=== PATIENT | male | born 1970 | race Caucasian/White ===

== ENCOUNTER 2017-08-05 00:53 | Inpatient (IN) | payer MEDICAID ==
[~2017-08-05] VITALS: Ht 182.9 cm; Wt 96.3 kg
[2017-08-05 01:32] LABS: MEAN CORPUSCULAR HEMOGLOBIN 31.2 pg (27.5-34.5); MEAN CORPUSCULAR HGB CONC 33.7 g/dL (33.2-36.2); MEAN CORPUSCULAR VOLUME 92.5 fL (81-97); RED BLOOD COUNT 4.05 x10^6/uL (4.38-5.82); RED CELL DISTRIBUTION WIDTH 16.7 % (9.4-14.8)
[2017-08-05 01:35] LABS: ANION GAP 9 mmol/L (5-15); CALCIUM 8.2 mg/dL (8.5-10.1); CHLORIDE 112 mmol/L (98-107); CREATININE 0.74 mg/dL (0.7-1.3)
[2017-08-05 01:36] LABS: ALANINE AMINOTRANSFERASE 30 U/L (12-78); ALBUMIN 2.1 g/dL (3.4-5.0)
[2017-08-05 01:38] LABS: ALKALINE PHOSPHATASE 150 U/L (45-117); BILIRUBIN,TOTAL 1.6 mg/dL (0.2-1.0); TOTAL PROTEIN 6.3 g/dL (6.4-8.2)
[2017-08-05] MEDS ORDERED: SPIR25TA3 PO (01:41)
[2017-08-05] MEDS ORDERED: GABA300C10 PO (01:41)
[2017-08-05] MEDS ORDERED: OXYC5CAP2 PO (01:41)
[2017-08-05] MEDS ORDERED: CEPH-375 PO (01:41)
[2017-08-05] MEDS ORDERED: PANT20TA3 PO (01:41)
[2017-08-05] MEDS ORDERED: LEVE100S6 PO (01:41)
[2017-08-05] MEDS ORDERED: RIFA200T5 PO (01:41)
[2017-08-05 02:05] LABS: BASOPHILS # (AUTO) 0.02 x10^3/uL (0-0.1); BASOPHILS % (AUTO) 0 % (0-1); EOSINOPHILS % (AUTO) 0 % (1-7); LYMPHOCYTES # (AUTO) 0.65 x10^3/uL (1-3.4); LYMPHOCYTES % (AUTO) 14 % (22-44); MD SCAN; MEAN PLATELET VOLUME 8.2 fL (7.4-10.4); MONOCYTES # (AUTO) 0.61 x10^3/uL (0.2-0.8); MONOCYTES % (AUTO) 13 % (2-9); NEUTROPHILS # (AUTO) 3.54 x10^3/uL (1.8-6.8); NEUTROPHILS % (AUTO) 73 % (42-75); PLATELET COUNT 66 x10^3/uL (130-400)
[2017-08-05 03:25] LABS: ACETAMINOPHEN < 2 mcg/mL (10-30)
[2017-08-05 03:26] LABS: SALICYLATE LEVEL < 1.7 mg/dL (2.8-20.0)
[2017-08-05] MEDS ORDERED: SODIUM CHLORIDE 0.9% 1,000 ML IV ONE (04:05)
[2017-08-05] MEDS ORDERED: ONDANSETRON 2MG/ML, 2ML IVPush PRN (04:30)
[2017-08-05] MEDS ORDERED: LACTULOSE 3.3 GM/5 ML ORAL.SOL RC ONE ×2 (08:00→12:00)
[2017-08-05 08:54] LABS: AMPHETAMINE SCREEN, URINE Positive (Negative); BARBITURATE SCREEN, URINE Negative (Negative); BENZODIAZEPINE SCREEN, URINE Negative (Negative); CANNABINOID SCREEN, URINE Negative (Negative); COCAINE SCREEN, URINE Negative (Negative); METHADONE SCREEN, URINE Negative (Negative); OPIATE SCREEN, URINE Negative (Negative)
[2017-08-05 10:00] LABS: MICROSCOPIC INDICATED
[2017-08-05 10:38] LABS: CULTURE INDICATED? NO
[2017-08-05] MEDS ORDERED: ONDANSETRON ODT 4 MG PO PRN (12:00)
[2017-08-05] MEDS ORDERED: hydrALAzine 20 MG/ML, 1ML IVPush PRN (12:00)
[2017-08-05] MEDS ORDERED: LABETALOL 5MG/ML, 20ML IVPush PRN (12:00)
[2017-08-05] MEDS: CEFTRIAXONE PMX 2GM/50ML 50 ML IV SCH (12:26)
[2017-08-05 12:31] LABS: HEMOGLOBIN A1C 4.4 % (4.2-6.3)
[2017-08-05 12:32] LABS: INTERNATIONAL NORMALIZED RATIO 1.36 (0.93-1.1); PROTHROMBIN TIME 14.1 Seconds (9.6-11.5)
[2017-08-05 12:40] LABS: FREE T4 (FREE THYROXINE) 1.25 ng/dL (0.76-1.46); THYROID STIMULATING HORMONE 0.747 mIU/L (0.358-3.740)
[2017-08-05] MEDS: LEVETIRACETAM 500 MG in SODIUM CHLORIDE 0.9% 100 ML IV SCH ×2 (13:48→23:33)
[2017-08-05 14:00] VITALS: BP 130/79
[2017-08-05] MEDS: POTASSIUM CHLORIDE 20 MEQ, MAGNESIUM SULFATE 2 GM, THIAMINE 100 MG, MVI ADULT 10 ML, FO... IV SCH ×2 (15:01→22:16)
[2017-08-05 19:13] VITALS: BP 122/80
[2017-08-06 01:39] VITALS: BP 115/74
[2017-08-06 05:03] LABS: MEAN CORPUSCULAR HEMOGLOBIN 31.3 pg (27.5-34.5); MEAN CORPUSCULAR HGB CONC 33.9 g/dL (33.2-36.2); MEAN CORPUSCULAR VOLUME 92.3 fL (81-97); RED BLOOD COUNT 3.96 x10^6/uL (4.38-5.82); RED CELL DISTRIBUTION WIDTH 16.5 % (9.4-14.8)
[2017-08-06 05:27] LABS: ANION GAP 7 mmol/L (5-15); CALCIUM 7.6 mg/dL (8.5-10.1); CHLORIDE 113 mmol/L (98-107)
[2017-08-06 05:29] LABS: CREATININE 0.71 mg/dL (0.7-1.3)
[2017-08-06 06:14] LABS: BASOPHILS # (AUTO) 0.05 x10^3/uL (0-0.1); BASOPHILS % (AUTO) 1 % (0-1); EOSINOPHILS % (AUTO) 0 % (1-7); LYMPHOCYTES % (AUTO) 12 % (22-44); MD SCAN; MEAN PLATELET VOLUME 8.1 fL (7.4-10.4); MONOCYTES # (AUTO) 0.43 x10^3/uL (0.2-0.8); MONOCYTES % (AUTO) 11 % (2-9); NEUTROPHILS # (AUTO) 3.04 x10^3/uL (1.8-6.8); NEUTROPHILS % (AUTO) 76 % (42-75); PLATELET COUNT 55 x10^3/uL (130-400)
[2017-08-06 06:40] VITALS: BP 109/63
[2017-08-06] MEDS: ONDANSETRON 2MG/ML, 2ML IVPush PRN (08:37)
[2017-08-06] MEDS: PANTOPRAZOLE 40 MG IV IVPush SCH (08:37)
[2017-08-06] MEDS: POTASSIUM CHLORIDE 20 MEQ, MAGNESIUM SULFATE 2 GM, THIAMINE 100 MG, MVI ADULT 10 ML, FO... IV SCH ×2 (10:30→16:55)
[2017-08-06] MEDS ORDERED: LORazepam 1MG TABLET PO PRN ×3 (12:00)
[2017-08-06] MEDS ORDERED: LORazepam 2 MG/ML, 1ML IV PRN ×5 (12:00)
[2017-08-06] MEDS: LEVETIRACETAM 500 MG in SODIUM CHLORIDE 0.9% 100 ML IV SCH ×2 (12:25→23:40)
[2017-08-06] MEDS: PHYTONADIONE 10 MG/ML, 1ML IM SCH (12:26)
[2017-08-06 12:27] VITALS: BP 96/57
[2017-08-06 12:50] LABS: ALBUMIN 1.9 g/dL (3.4-5.0); BILIRUBIN, DIRECT 1.1 mg/dL (0.1-0.2); BILIRUBIN,TOTAL 3.1 mg/dL (0.2-1.0)
[2017-08-06] MEDS ORDERED: LIDOCAINE 2%, 20ML ONE (13:50)
[2017-08-06] MEDS ORDERED: LACTULOSE 20 GM/30 ML UDC PO SCH (14:30)
[2017-08-06] MEDS: SPIRONOLACTONE 25 MG TABLET PO SCH (15:03)
[2017-08-06] MEDS: CEFTRIAXONE PMX 2GM/50ML 50 ML IV SCH (15:04)
[2017-08-06 20:31] VITALS: BP 108/67
[2017-08-06] MEDS: IBUPROFEN 200 MG TABLET PO PRN (23:41)
[2017-08-06] MEDS: LACTULOSE 20 GM/30 ML UDC PO SCH (23:41)
[2017-08-06] MEDS: LORazepam 0.5MG TABLET PO PRN (23:55)
[2017-08-07 01:27] VITALS: BP 129/75
[2017-08-07] MEDS: POTASSIUM CHLORIDE 20 MEQ, MAGNESIUM SULFATE 2 GM, THIAMINE 100 MG, MVI ADULT 10 ML, FO... IV SCH (03:01)
[2017-08-07] MEDS: LORazepam 1MG TABLET PO PRN ×2 (04:38→08:39)
[2017-08-07 05:54] LABS: ALBUMIN 1.9 g/dL (3.4-5.0); ANION GAP 7 mmol/L (5-15); CALCIUM 7.5 mg/dL (8.5-10.1); CHLORIDE 112 mmol/L (98-107)
[2017-08-07 05:58] LABS: ALANINE AMINOTRANSFERASE 24 U/L (12-78); ALKALINE PHOSPHATASE 122 U/L (45-117); BILIRUBIN,TOTAL 2.4 mg/dL (0.2-1.0); CREATININE 0.78 mg/dL (0.7-1.3); TOTAL PROTEIN 5.9 g/dL (6.4-8.2)
[2017-08-07 06:16] LABS: MEAN CORPUSCULAR HEMOGLOBIN 31.3 pg (27.5-34.5); MEAN CORPUSCULAR HGB CONC 33.9 g/dL (33.2-36.2); MEAN CORPUSCULAR VOLUME 92.3 fL (81-97); MEAN PLATELET VOLUME 8.1 fL (7.4-10.4); PLATELET COUNT 53 x10^3/uL (130-400); RED BLOOD COUNT 4.03 x10^6/uL (4.38-5.82); RED CELL DISTRIBUTION WIDTH 16.2 % (9.4-14.8)
[2017-08-07 06:42] LABS: BASOPHILS # (AUTO) 0.02 x10^3/uL (0-0.1); BASOPHILS % (AUTO) 1 % (0-1); EOSINOPHILS % (AUTO) 0 % (1-7); LYMPHOCYTES # (AUTO) 0.42 x10^3/uL (1-3.4); LYMPHOCYTES % (AUTO) 12 % (22-44); MD SCAN; MONOCYTES # (AUTO) 0.36 x10^3/uL (0.2-0.8); MONOCYTES % (AUTO) 10 % (2-9); NEUTROPHILS # (AUTO) 2.73 x10^3/uL (1.8-6.8); NEUTROPHILS % (AUTO) 77 % (42-75)
[2017-08-07 07:17] VITALS: BP 103/63
[2017-08-07] MEDS: PANTOPRAZOLE 40 MG IV IVPush SCH (08:38)
[2017-08-07] MEDS: SPIRONOLACTONE 25 MG TABLET PO SCH (08:38)
[2017-08-07] MEDS: PHYTONADIONE 10 MG/ML, 1ML IM SCH (08:38)
[2017-08-07] MEDS: LACTULOSE 20 GM/30 ML UDC PO SCH ×2 (08:39→22:52)
[2017-08-07] MEDS ORDERED: POTASSIUM CHLORIDE 20 MEQ, MAGNESIUM SULFATE 2 GM, THIAMINE 100 MG, MVI ADULT 10 ML, FO... IV SCH (10:30)
[2017-08-07] MEDS: LEVETIRACETAM 500 MG in SODIUM CHLORIDE 0.9% 100 ML IV SCH (11:02)
[2017-08-07] MEDS: CEFTRIAXONE PMX 2GM/50ML 50 ML IV SCH (12:15)
[2017-08-07 12:57] VITALS: BP 104/66
[2017-08-07] MEDS: PANTOPRAZOLE 20MG TABLET PO SCH (14:17)
[2017-08-07] MEDS: THIAMINE 100MG TABLET PO SCH (14:17)
[2017-08-07] MEDS: FOLIC ACID 1 MG TABLET PO SCH (14:17)
[2017-08-07 20:41] VITALS: BP 102/58
[2017-08-07] MEDS ORDERED: LACTULOSE 20 GM/30 ML UDC PO SCH (21:00)
[2017-08-07] MEDS: RIFAXIMIN 550 MG TABLET PO SCH (22:48)
[2017-08-08] MEDS: LEVETIRACETAM 500 MG in SODIUM CHLORIDE 0.9% 100 ML IV SCH ×2 (00:05→11:35)
[2017-08-08] MEDS: LORazepam 0.5MG TABLET PO PRN (00:05)
[2017-08-08] MEDS: PANTOPRAZOLE 20MG TABLET PO SCH ×2 (02:00→15:12)
[2017-08-08 05:17] VITALS: BP 97/61
[2017-08-08 05:58] LABS: MEAN CORPUSCULAR HEMOGLOBIN 31.9 pg (27.5-34.5); MEAN CORPUSCULAR HGB CONC 34.4 g/dL (33.2-36.2); MEAN CORPUSCULAR VOLUME 92.7 fL (81-97); MEAN PLATELET VOLUME 8.1 fL (7.4-10.4); PLATELET COUNT 61 x10^3/uL (130-400); RED BLOOD COUNT 4.15 x10^6/uL (4.38-5.82); RED CELL DISTRIBUTION WIDTH 16.8 % (9.4-14.8)
[2017-08-08 06:05] LABS: CHLORIDE 113 mmol/L (98-107)
[2017-08-08 06:12] LABS: ALANINE AMINOTRANSFERASE 27 U/L (12-78); ALBUMIN 1.9 g/dL (3.4-5.0); ALKALINE PHOSPHATASE 125 U/L (45-117); ANION GAP 8 mmol/L (5-15); BILIRUBIN,TOTAL 2.1 mg/dL (0.2-1.0); CALCIUM 7.8 mg/dL (8.5-10.1); CREATININE 0.79 mg/dL (0.7-1.3); TOTAL PROTEIN 6.2 g/dL (6.4-8.2)
[2017-08-08 06:18] LABS: BASOPHILS # (AUTO) 0.04 x10^3/uL (0-0.1); BASOPHILS % (AUTO) 1 % (0-1); EOSINOPHILS % (AUTO) 0 % (1-7); LYMPHOCYTES # (AUTO) 0.56 x10^3/uL (1-3.4); LYMPHOCYTES % (AUTO) 14 % (22-44); MD SCAN; MONOCYTES # (AUTO) 0.36 x10^3/uL (0.2-0.8); MONOCYTES % (AUTO) 9 % (2-9); NEUTROPHILS # (AUTO) 2.95 x10^3/uL (1.8-6.8); NEUTROPHILS % (AUTO) 76 % (42-75)
[2017-08-08] MEDS: LORazepam 1MG TABLET PO PRN (06:31)
[2017-08-08 08:00] VITALS: BP 95/58
[2017-08-08] MEDS: PHYTONADIONE 10 MG/ML, 1ML IM SCH (08:55)
[2017-08-08] MEDS: LACTULOSE 20 GM/30 ML UDC PO SCH ×3 (08:56→21:50)
[2017-08-08] MEDS: RIFAXIMIN 550 MG TABLET PO SCH ×2 (08:56→21:49)
[2017-08-08] MEDS: THIAMINE 100MG TABLET PO SCH (08:56)
[2017-08-08] MEDS: MULTIVITAMINS/MINERALS TABLET PO SCH (08:56)
[2017-08-08] MEDS: PANTOPRAZOLE 40 MG IV IVPush SCH (08:56)
[2017-08-08] MEDS: FOLIC ACID 1 MG TABLET PO SCH (08:56)
[2017-08-08] MEDS: SPIRONOLACTONE 25 MG TABLET PO SCH (08:56)
[2017-08-08] MEDS: CEFTRIAXONE PMX 2GM/50ML 50 ML IV SCH (12:07)
[2017-08-08] MEDS ORDERED: LACTULOSE 3.3 GM/5 ML ORAL.SOL RC ONE (12:30)
[2017-08-08 13:05] VITALS: BP 102/63
[2017-08-08 18:59] VITALS: BP 101/61
[2017-08-08] MEDS: IBUPROFEN 200 MG TABLET PO PRN (21:57)
[2017-08-09] MEDS: LEVETIRACETAM 500 MG in SODIUM CHLORIDE 0.9% 100 ML IV SCH ×3 (00:15→23:08)
[2017-08-09] MEDS: LORazepam 1MG TABLET PO PRN (03:23)
[2017-08-09] MEDS: PANTOPRAZOLE 20MG TABLET PO SCH ×2 (03:23→16:26)
[2017-08-09 03:24] VITALS: BP 108/72
[2017-08-09 05:42] LABS: CHLORIDE 113 mmol/L (98-107)
[2017-08-09 05:48] LABS: ALANINE AMINOTRANSFERASE 25 U/L (12-78); ALBUMIN 1.9 g/dL (3.4-5.0); ALKALINE PHOSPHATASE 124 U/L (45-117); ANION GAP 8 mmol/L (5-15); BILIRUBIN,TOTAL 1.7 mg/dL (0.2-1.0); CALCIUM 8.1 mg/dL (8.5-10.1); CREATININE 0.87 mg/dL (0.7-1.3); TOTAL PROTEIN 6.1 g/dL (6.4-8.2)
[2017-08-09 05:54] LABS: MEAN CORPUSCULAR HEMOGLOBIN 31.4 pg (27.5-34.5); MEAN CORPUSCULAR HGB CONC 33.9 g/dL (33.2-36.2); MEAN CORPUSCULAR VOLUME 92.6 fL (81-97); MEAN PLATELET VOLUME 8.7 fL (7.4-10.4); PLATELET COUNT 58 x10^3/uL (130-400); RED BLOOD COUNT 4.16 x10^6/uL (4.38-5.82); RED CELL DISTRIBUTION WIDTH 15.9 % (9.4-14.8)
[2017-08-09 06:32] LABS: BASOPHILS # (AUTO) 0.03 x10^3/uL (0-0.1); BASOPHILS % (AUTO) 1 % (0-1); EOSINOPHILS % (AUTO) 0 % (1-7); LYMPHOCYTES # (AUTO) 0.53 x10^3/uL (1-3.4); LYMPHOCYTES % (AUTO) 14 % (22-44); MD SCAN; MONOCYTES # (AUTO) 0.41 x10^3/uL (0.2-0.8); MONOCYTES % (AUTO) 11 % (2-9); NEUTROPHILS # (AUTO) 2.85 x10^3/uL (1.8-6.8); NEUTROPHILS % (AUTO) 74 % (42-75)
[2017-08-09] MEDS: PANTOPRAZOLE 40 MG IV IVPush SCH (07:30)
[2017-08-09 08:20] VITALS: BP 105/68
[2017-08-09] MEDS: THIAMINE 100MG TABLET PO SCH (08:23)
[2017-08-09] MEDS: LACTULOSE 20 GM/30 ML UDC PO SCH ×3 (08:23→20:27)
[2017-08-09] MEDS: MULTIVITAMINS/MINERALS TABLET PO SCH (08:23)
[2017-08-09] MEDS: SPIRONOLACTONE 25 MG TABLET PO SCH (08:23)
[2017-08-09] MEDS: FOLIC ACID 1 MG TABLET PO SCH (08:23)
[2017-08-09] MEDS: PHYTONADIONE 10 MG/ML, 1ML IM SCH (08:23)
[2017-08-09] MEDS: RIFAXIMIN 550 MG TABLET PO SCH ×2 (08:23→20:27)
[2017-08-09] MEDS ORDERED: LACT20SO13 PO (11:25)
[2017-08-09] MEDS ORDERED: FOLI-17 PO (11:25)
[2017-08-09] MEDS ORDERED: THIA100T6 PO (11:25)
[2017-08-09] MEDS ORDERED: CEFT2FRO2 IV (11:34)
[2017-08-09] MEDS: CEFTRIAXONE PMX 2GM/50ML 50 ML IV SCH (12:11)
[2017-08-09 15:30] VITALS: BP 107/62
[2017-08-09 20:25] VITALS: BP 96/55
[2017-08-10] VITALS (11 sets, daily range): BP systolic 101–121; BP diastolic 58–74
[2017-08-10] MEDS: PANTOPRAZOLE 40 MG IV IVPush SCH (07:30)
[2017-08-10] MEDS: SPIRONOLACTONE 25 MG TABLET PO SCH (09:23)
[2017-08-10] MEDS: MULTIVITAMINS/MINERALS TABLET PO SCH (09:23)
[2017-08-10] MEDS: LACTULOSE 20 GM/30 ML UDC PO SCH ×3 (09:23→21:05)
[2017-08-10] MEDS: FOLIC ACID 1 MG TABLET PO SCH (09:23)
[2017-08-10] MEDS: RIFAXIMIN 550 MG TABLET PO SCH ×2 (09:23→21:05)
[2017-08-10] MEDS: THIAMINE 100MG TABLET PO SCH (09:23)
[2017-08-10] MEDS: PANTOPRAZOLE 20MG TABLET PO SCH ×2 (09:23→21:05)
[2017-08-10] MEDS: PHYTONADIONE 10 MG/ML, 1ML IM SCH (09:23)
[2017-08-10] MEDS ORDERED: LACTULOSE 3.3 GM/5 ML ORAL.SOL RC ONE (10:00)
[2017-08-10] MEDS: CEFTRIAXONE PMX 2GM/50ML 50 ML IV SCH (12:09)
[2017-08-10] MEDS: LIDODERM 5% PATCH TD SCH (12:16)
[2017-08-10] MEDS: LEVETIRACETAM 500 MG TABLET PO SCH (21:05)
[2017-08-10] MEDS: ONDANSETRON 2MG/ML, 2ML IVPush PRN (23:07)
[2017-08-11 03:00] VITALS: BP 106/64
[2017-08-11 07:44] VITALS: BP 101/61
[2017-08-11] MEDS: PHYTONADIONE 10 MG/ML, 1ML IM SCH (08:43)
[2017-08-11] MEDS: LACTULOSE 20 GM/30 ML UDC PO SCH (08:43)
[2017-08-11] MEDS: RIFAXIMIN 550 MG TABLET PO SCH (08:43)
[2017-08-11] MEDS: SPIRONOLACTONE 25 MG TABLET PO SCH (08:43)
[2017-08-11] MEDS: PANTOPRAZOLE 20MG TABLET PO SCH (08:43)
[2017-08-11] MEDS: FOLIC ACID 1 MG TABLET PO SCH (08:43)
[2017-08-11] MEDS: THIAMINE 100MG TABLET PO SCH (08:43)
[2017-08-11] MEDS: MULTIVITAMINS/MINERALS TABLET PO SCH (08:43)
[2017-08-11] MEDS: LEVETIRACETAM 500 MG TABLET PO SCH (08:43)
[2017-08-11] MEDS: LIDODERM 5% PATCH TD SCH (12:30)
[2017-08-11] MEDS: CEFTRIAXONE PMX 2GM/50ML 50 ML IV SCH (12:46)
[2017-08-11 13:14] VITALS: BP 109/74
[2017-08-11] MEDS ORDERED: CEFD300C37 PO (13:35)
[2017-08-11] MEDS ORDERED: THIA100T6 PO (13:35)
[2017-08-11] MEDS ORDERED: FOLI-17 PO (13:35)
[2017-08-11] MEDS ORDERED: LACT20SO13 PO (13:35)
== END 2017-08-11 17:57 | disposition home or self-care (01) | DRG 441 ==
LOC: ED 03:33 → EDIP 04:06 → 4EST 06:08
PROVIDERS: ADMIT Surgery; ATTEND Surgery
PROC: 0W9G3ZZ Drainage of Peritoneal Cavity, Percutaneous Approach (ICD-10-PCS; principal; 2017-08-06)
DX: K72.00 Acute and subacute hepatic failure without coma (principal); K65.2 Spontaneous bacterial peritonitis; E44.0 Moderate protein-calorie malnutrition; D68.9 Coagulation defect, unspecified; D69.6 Thrombocytopenia, unspecified; R18.8 Other ascites; K76.6 Portal hypertension; D64.9 Anemia, unspecified; F10.229 Alcohol dependence with intoxication, unspecified; B18.2 Chronic viral hepatitis C; K74.60 Unspecified cirrhosis of liver; Z68.28 Body mass index [BMI] 28.0-28.9, adult; F15.10 Other stimulant abuse, uncomplicated; G40.909 Epilepsy, unspecified, not intractable, without status epilepticus
CPT/HCPCS: 36415; 49083; 70450; 71045; 76700; 80048; 80053; 80074; 80076; 80307; 80329; 81001; 82042; 82140; 82550; 82945; 83036; 83690; 83735; 83986; 84100; 84157; 84439; 84443; 85025; 85610; 87070; 87205; 87521; 89051; 99285; J0696; J1953; J2405; J3411; J3430; J3475; J3480; J3490; J7042; C9113; G0479; G0480; J2060; J7030

== ENCOUNTER 2017-08-12 04:03 | Emergency (ER) | payer MEDICAID ==
[~2017-08-12] VITALS: Ht 190.5 cm; Wt 100.0 kg
[~2017-08-12 04:03] MED LIST: CEFD300C37 PO; CEFT2FRO2 IV; CEPH-375 PO; FOLI-17 PO; GABA300C10 PO; LACT20SO13 PO; LEVE100S6 PO; OXYC5CAP2 PO; PANT20TA3 PO; RIFA200T5 PO; SPIR25TA3 PO; THIA100T6 PO
[2017-08-12 09:08] VITALS: BP 114/66
== END 2017-08-12 09:17 | disposition home or self-care (01) ==
LOC: ED 07:11
DX: S09.93XA Unspecified injury of face, initial encounter (principal); Z59.0 Homelessness; W19.XXXA Unspecified fall, initial encounter; Y93.89 Activity, other specified; Y92.410 Unspecified street and highway as the place of occurrence of the external cause; Y99.9 Unspecified external cause status
CPT/HCPCS: 70450; 99284